=== PATIENT | male | born 1980 | race African-American/Black ===

== ENCOUNTER 2016-06-16 17:21 | Emergency (ER) | payer SELFPAY ==
[~2016-06-16] VITALS: Ht 188 cm; Wt 106.6 kg
[2016-06-16 18:45] LABS: CALCIUM 9.8 mg/dL (8.5-10.1); GFR 102.9; POTASSIUM 3.7 mmol/L (3.5-5.1)
[2016-06-16 18:55] VITALS: BP 177/110
[2016-06-16] MEDS ORDERED: AMLO5TAB2 PO (19:12)
--- NOTE | 2016-06-16 19:12 | PHYS DOC ---
Past Medical History Past Medical History: No Pertinent History Past Surgical History: Appendectomy Alcohol Use: None Drug Use: Marijuana Adult General Chief Complaint Chief Complaint: DIZZY/LIGHT HEADED [facility] HPI Patient is a 35 year old male who presents with intermittent symptoms over the past few days such as lightheadedness, intermittent tingling in his hands, had an episode of chest pain, and has had mild headaches as well. He is currently asymptomatic. He denies a history of high blood pressure, but states he has measured his blood pressure recently and it has been significantly elevated. He denies vision changes, numbness, tingling, weakness, dyspnea, orthopnea, leg pain or swelling, fever or chills, palpitations, diaphoresis. Review of Systems Review of Systems Constitutional: Denies fever or chills [] Eyes: Denies change in visual acuity, redness, or eye pain [] HENT: Denies nasal congestion or sore throat [] Respiratory: Denies cough or shortness of breath [] Cardiovascular: No additional information not addressed in HPI [] GI: Denies abdominal pain, nausea, vomiting, bloody stools or diarrhea [] : Denies dysuria or hematuria [] Musculoskeletal: Denies back pain or joint pain [] Integument: Denies rash or skin lesions [] Neurologic: Denies headache, focal weakness or sensory changes [] Endocrine: Denies polyuria or polydipsia [] Allergies Allergies Allergies Coded Allergies Type Severity Reaction Last Updated Verified No Known Drug Allergies 06/16/16 No Physical Exam Physical Exam Constitutional: Well developed, well nourished, no acute distress, non-toxic appearance. [] HENT: Normocephalic, atraumatic, bilateral external ears normal, oropharynx moist, no oral exudates, nose normal. [] Eyes: PERRLA, EOMI. [] Neck: Normal range of motion, no tenderness, supple. [] Cardiovascular:Heart rate regular rhythm, no murmur [] Lungs & Thorax: Bilateral breath sounds clear to auscultation [] Abdomen: Bowel sounds normal, soft, no tenderness. [] Skin: Warm, dry, no erythema, no rash. [] Back: Normal range of motion. [] Extremities: No tenderness, ROM intact, no edema. [] Neurologic: Alert and oriented X 3, normal motor function, normal sensory function, no focal deficits noted. [] Psychologic: Affect normal, judgement normal, mood normal. [] Current Patient Data Vital Signs Vital Signs Date Time Temp Pulse Resp B/P Pulse Ox O2 Delivery O2 Flow Rate FiO2 06/16/16 18:25 64 17 204/136 100 Room Air 06/16/16 17:24 98.0 98.0 Lab Values Laboratory Tests Test 06/16/16 18:25 Sodium Level 145mmol/L (136-145) Potassium Level 3.7mmol/L (3.5-5.1) Chloride Level 107mmol/L (98-107) Carbon Dioxide Level 28mmol/L (21-32) Anion Gap 10 (6-14) Blood Urea Nitrogen 13mg/dL (8-26) Creatinine 1.0mg/dL (0.7-1.3) Estimated GFR (Cockcroft-Gault) 102.9 Glucose Level 90mg/dL (70-99) Calcium Level 9.8mg/dL (8.5-10.1) Troponin I Quantitative < 0.017ng/mL (0.000-0.055) Laboratory Tests 06/16/16 18:25 EKG EKG EKG as interpreted by me as normal sinus rhythm, rate 69, does not meet STEMI criteria, normal intervals Radiology/Procedures Radiology/Procedures Chest xray as interpreted by me with no acute cardiopulmonary disease process Course & Med Decision Making Course & Med Decision Making Pertinent Labs and Imaging studies reviewed. (See chart for details) Workup is unremarkable. He remains hypertensive. Will start on low-dose antihypertensive. Encouraged close follow-up with primary care. Return precautions given. He understands and agrees with plan. Dragon Disclaimer Dragon Disclaimer This electronic medical record was generated, in whole or in part, using a voice recognition dictation system. Departure Departure Impression: Primary Impression: Uncontrolled hypertension Disposition: HOME, SELF-CARE Condition: STABLE Referrals: NO PCP (PCP) Patient Instructions: Hypertension, [id number] Additional Instructions: Take amlodipine for hypertension pressure. Follow-up with your primary care doctor within one week. Return for any concerns. Scripts Amlodipine Besylate 5 Mg Tablet5 Mg PO DAILY #30 TAB Prov:Nguyễn SCOTT MD 06/16/16 Nguyễn SCOTT MD Jun 16, 2016 19:12
--- NOTE | 2016-06-17 06:32 | EKG ---
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
--- NOTE | 2016-06-17 08:26 | RAD ---
Chest, 2 views, 06/16/2016: History: Dizziness, right arm numbness The heart size and pulmonary vascularity are normal. No pulmonary infiltrates are seen. There is no evidence of pleural fluid. IMPRESSION: No acute cardiopulmonary abnormality is detected.
== END 2016-06-16 19:20 | disposition home or self-care (01) ==
LOC: ER 17:21
DX: I10 Essential (primary) hypertension (principal); R07.9 Chest pain, unspecified; F12.10 Cannabis abuse, uncomplicated; Z90.49 Acquired absence of other specified parts of digestive tract
CPT/HCPCS: 36415; 71020; 80048; 84484; 93005; 99285-25